=== PATIENT | male | born 1945 | race Caucasian/White ===

== ENCOUNTER 2022-06-01 00:06 | Observation (INO) ==
[2022-06-01 00:26] LABS: Basophils # 0.1 10*3/uL (0.0-0.2); Basophils % 0.9 % (0.0-0.8); Eosinophils # 0.7 10*3/uL (0.0-0.87); Eosinophils % 8.2 % (0.00-10.9); Hematocrit 41.5 VOL% (42.0-52.0); Hemoglobin 13.7 GM/DL (14.0-18.0); Immature Granulocytes % 0.2 %; Immature Granulocytes Absolute 0.02 #; Lymphocytes # 3.3 10*3/uL (1.4-4.0); Lymphocytes % 37.4 % (21.2-54.2); Mean Corpuscular Volume 92.8 FL (87-102); Mean Platelet Volume 9.2 FL (9.6-12.0); Monocytes # 0.9 10*3/uL (0.11-0.8); Monocytes % 10.6 % (1.7-12.7); Neutrophils % 42.7 % (38.7-73.9); Platelet Count 229 T/CUMM (130-400); Red Blood Count 4.47 MC/CUMM (3.8-5.5); Red Cell Distribution Width 12.9 % (9.3-17.3); White Blood Count 8.7 T/CUMM (4-12)
[2022-06-01 00:54] LABS: Alanine Aminotransferase 28 U/L (16-61); Albumin 3.6 G/DL (3.4-5.0); Alkaline Phosphatase 68 U/L (45-117); Aspartate Amino Transferase 20 U/L (0-37); Bilirubin,Total < 0.39 MG/DL (0.20-1.00); Blood Urea Nitrogen 33 MG/DL (7-18); Calcium 8.6 MG/DL (8.5-10.1); Carbon Dioxide 28 MMOL/L (21-32); Chloride 108 MMOL/L (98-107); Glucose 89 MG/DL (74-106); Osmolality,Calculated 286.3 MOS/KG (273-304); Sodium 141 MMOL/L (136-145); Total Protein 7.3 G/DL (6.4-8.2)
[2022-06-01 01:11] LABS: INR 0.9; PT Patient Result 10.5 SECS (10.1-12.1); Partial Thromboplastin Time 27.4 SECS (23.7-32.9)
[2022-06-01] MEDS ORDERED: LACTATED RINGERS 1,000 ML IV ONE (01:11)
[2022-06-01] MEDS ORDERED: MAGNESIUM SULF RIDER 2 GM/50 ML PREMIX IV PRN (01:45)
[2022-06-01] MEDS ORDERED: MAGNESIUM SULF RIDER 4 GM/100 ML PREMIX IV PRN (01:45)
[2022-06-01] MEDS: SODIUM CHLORIDE 0.9% 1,000 ML IV SCH ×2 (04:54→18:10)
[2022-06-01 06:01] LABS: Basophils # 0.1 10*3/uL (0.0-0.2); Eosinophils # 0.6 10*3/uL (0.0-0.87); Eosinophils % 8.4 % (0.00-10.9); Hematocrit 38.6 VOL% (42.0-52.0); Immature Granulocytes % 0.1 %; Immature Granulocytes Absolute 0.01 #; Lymphocytes # 2.3 10*3/uL (1.4-4.0); Mean Corpuscular HGB Conc 33.7 GM/DL (32-36); Mean Corpuscular Volume 91.7 FL (87-102); Mean Platelet Volume 9.5 FL (9.6-12.0); Monocytes # 0.7 10*3/uL (0.11-0.8); Monocytes % 10.2 % (1.7-12.7); Neutrophils % 46.3 % (38.7-73.9); Platelet Count 203 T/CUMM (130-400); Red Blood Count 4.21 MC/CUMM (3.8-5.5); Red Cell Distribution Width 12.8 % (9.3-17.3); White Blood Count 6.8 T/CUMM (4-12)
[2022-06-01 06:15] LABS: Albumin 3.3 G/DL (3.4-5.0); Bilirubin,Total 0.5 MG/DL (0.20-1.00); Calcium 8.7 MG/DL (8.5-10.1); Osmolality,Calculated 287.1 MOS/KG (273-304); Potassium 3.6 MMOL/L (3.5-5.1); Total Protein 6.9 G/DL (6.4-8.2)
[2022-06-01] MEDS: ASPIRIN EC 81 MG TABLET PO SCH (10:01)
[2022-06-01] MEDS ORDERED: ZALEPLON 5 MG CAPSULE PO PRN (10:44)
[2022-06-01] MEDS ORDERED: ALUMINUM/MAGNES/SIMETH MAX STR 30 ML UDCUP PO PRN (10:44)
[2022-06-01] MEDS ORDERED: diphenhydrAMINE CAP 25 MG CAPSULE PO PRN (10:44)
[2022-06-01] MEDS ORDERED: PROMETHAZINE 25 MG TABLET PO PRN (10:44)
[2022-06-01] MEDS ORDERED: DOCUSATE SODIUM 100 MG CAPSULE PO PRN (10:44)
[2022-06-01] MEDS ORDERED: ONDANSETRON 4 MG/2 ML VIAL IV PRN (10:44)
[2022-06-01] MEDS ORDERED: ACETAMINOPHEN 325 MG TABLET PO PRN (10:44)
[2022-06-01] MEDS ORDERED: hydrALAZINE 20 MG/1 ML VIAL IV PRN (10:44)
[2022-06-01] MEDS ORDERED: guaiFENesin/DM ER 600-30 MG TABLET PO PRN (10:44)
[2022-06-01] MEDS ORDERED: POTASSIUM CHLORIDE 20 MEQ TABLET PO ONE (10:46)
[2022-06-01] MEDS: ASCORBIC ACID 500 MG TABLET PO SCH ×3 (15:01→20:29)
[2022-06-02 04:45] LABS: Basophils # 0.1 10*3/uL (0.0-0.2); Eosinophils # 0.7 10*3/uL (0.0-0.87); Eosinophils % 10.1 % (0.00-10.9); Hematocrit 39.8 VOL% (42.0-52.0); Hemoglobin 13.1 GM/DL (14.0-18.0); Immature Granulocytes % 0.1 %; Immature Granulocytes Absolute 0.01 #; Lymphocytes # 2.6 10*3/uL (1.4-4.0); Lymphocytes % 35.1 % (21.2-54.2); Mean Corpuscular HGB Conc 32.9 GM/DL (32-36); Mean Corpuscular Volume 93.6 FL (87-102); Mean Platelet Volume 9.6 FL (9.6-12.0); Monocytes # 0.7 10*3/uL (0.11-0.8); Monocytes % 9.6 % (1.7-12.7); Neutrophils % 44.1 % (38.7-73.9); Platelet Count 209 T/CUMM (130-400); Red Blood Count 4.25 MC/CUMM (3.8-5.5); White Blood Count 7.3 T/CUMM (4-12)
[2022-06-02 05:13] LABS: Calcium 8.9 MG/DL (8.5-10.1); Potassium 4.3 MMOL/L (3.5-5.1)
[2022-06-02] MEDS: SODIUM CHLORIDE 0.9% 1,000 ML IV SCH ×2 (06:02→19:30)
[2022-06-02] MEDS ORDERED: ENOXAPARIN 40 MG/0.4 ML SYRINGE SUBCUT ONE (07:00)
[2022-06-02] MEDS: MULTIVITAMIN (CENTRUM) TABLET PO SCH (10:07)
[2022-06-02] MEDS: ASCORBIC ACID 500 MG TABLET PO SCH ×4 (10:07→20:41)
[2022-06-02] MEDS: PANTOPRAZOLE 40 MG TABLET PO SCH (10:07)
[2022-06-02] MEDS: ASPIRIN EC 81 MG TABLET PO SCH (10:08)
[2022-06-03 05:12] LABS: Basophils # 0.1 10*3/uL (0.0-0.2); Basophils % 0.7 % (0.0-0.8); Eosinophils # 0.7 10*3/uL (0.0-0.87); Eosinophils % 9.8 % (0.00-10.9); Hematocrit 39.1 VOL% (42.0-52.0); Hemoglobin 12.8 GM/DL (14.0-18.0); Immature Granulocytes % 0.1 %; Immature Granulocytes Absolute 0.01 #; Lymphocytes # 2.3 10*3/uL (1.4-4.0); Lymphocytes % 30.9 % (21.2-54.2); Mean Corpuscular HGB Conc 32.7 GM/DL (32-36); Mean Corpuscular Volume 94.4 FL (87-102); Mean Platelet Volume 9.9 FL (9.6-12.0); Monocytes # 0.6 10*3/uL (0.11-0.8); Monocytes % 8.7 % (1.7-12.7); Neutrophils % 49.8 % (38.7-73.9); Platelet Count 193 T/CUMM (130-400); Red Blood Count 4.14 MC/CUMM (3.8-5.5); Red Cell Distribution Width 12.8 % (9.3-17.3); White Blood Count 7.4 T/CUMM (4-12)
[2022-06-03 05:27] LABS: Calcium 8.8 MG/DL (8.5-10.1); Osmolality,Calculated 282.3 MOS/KG (273-304); Potassium 4.1 MMOL/L (3.5-5.1)
[2022-06-03] MEDS ORDERED: diphenhydrAMINE CAP 50 MG CAPSULE PO ONE (07:32)
[2022-06-03] MEDS ORDERED: ceFAZolin 1,000 MG VIAL IRRIG ONE (07:32)
[2022-06-03] MEDS ORDERED: DIAZEPAM 5 MG TABLET PO ONE (07:32)
[2022-06-03] MEDS: SODIUM CHLORIDE 0.9% 1,000 ML IV SCH ×2 (08:16→21:00)
[2022-06-03] MEDS ORDERED: MIDAZOLAM 2 MG/2 ML VIAL ONE (09:29)
[2022-06-03] MEDS ORDERED: HYDROmorphone 1 MG/1 ML SYRINGE ONE (09:29)
[2022-06-03] MEDS ORDERED: ceFAZolin 1,000 MG VIAL ONE (09:30)
[2022-06-03] MEDS ORDERED: LIDOCAINE 2%/EPI 20 ML VIAL ONE (09:49)
[2022-06-03] MEDS ORDERED: TISSUE ADHESIVE 1 EACH APPLICATOR TOP ONE (10:10)
[2022-06-03] MEDS: ASCORBIC ACID 500 MG TABLET PO SCH ×4 (11:46→21:00)
[2022-06-03] MEDS: MULTIVITAMIN (CENTRUM) TABLET PO SCH (11:46)
[2022-06-03] MEDS: PANTOPRAZOLE 40 MG TABLET PO SCH (11:47)
[2022-06-03] MEDS: ASPIRIN EC 81 MG TABLET PO SCH (11:47)
[2022-06-04 04:48] LABS: Basophils % 0.5 % (0.0-0.8); Eosinophils # 0.7 10*3/uL (0.0-0.87); Eosinophils % 8.3 % (0.00-10.9); Hemoglobin 12.8 GM/DL (14.0-18.0); Immature Granulocytes % 0.3 %; Immature Granulocytes Absolute 0.02 #; Lymphocytes # 1.9 10*3/uL (1.4-4.0); Lymphocytes % 24.7 % (21.2-54.2); Mean Corpuscular HGB Conc 32.8 GM/DL (32-36); Mean Corpuscular Volume 93.5 FL (87-102); Mean Platelet Volume 9.5 FL (9.6-12.0); Monocytes # 0.7 10*3/uL (0.11-0.8); Monocytes % 9.4 % (1.7-12.7); Neutrophils % 56.8 % (38.7-73.9); Platelet Count 187 T/CUMM (130-400); Red Blood Count 4.17 MC/CUMM (3.8-5.5); Red Cell Distribution Width 12.7 % (9.3-17.3); White Blood Count 7.9 T/CUMM (4-12)
[2022-06-04 05:06] LABS: Calcium 8.9 MG/DL (8.5-10.1); Osmolality,Calculated 281.4 MOS/KG (273-304); Potassium 3.7 MMOL/L (3.5-5.1)
[2022-06-04] MEDS ORDERED: METOPROLOL SUCCINATE XL 25 MG TABLET PO SCH (09:00)
[2022-06-04] MEDS: ASCORBIC ACID 500 MG TABLET PO SCH (09:38)
[2022-06-04] MEDS: ASPIRIN EC 81 MG TABLET PO SCH (09:39)
[2022-06-04] MEDS: MULTIVITAMIN (CENTRUM) TABLET PO SCH (09:39)
[2022-06-04] MEDS: PANTOPRAZOLE 40 MG TABLET PO SCH (09:39)
[2022-06-04 10:15] VITALS: BP 122/63
== END 2022-06-04 10:38 | disposition home or self-care (01) ==
LOC: N.ED 00:06 → N.EDINP 00:06 → N.TELES 04:40
PROVIDERS: ADMIT Internal Medicine Cardiovascular Disease; ATTEND Internal Medicine Cardiovascular Disease